=== PATIENT | male | born 1980 | race Two or more races ===

== ENCOUNTER 2023-02-05 10:01 | Outpatient (REF) | payer OTHER, SELFPAY | END 2023-02-05 10:02 | disposition home or self-care (01) | LOC: HO.BBR 10:01 | PROVIDERS: Visit Provider Internal Medicine Hematology | DX: D45 Polycythemia vera (principal) | CPT/HCPCS: 85014; 85018; 99195 ==

== ENCOUNTER 2023-02-12 09:14 | Outpatient (REF) | payer OTHER, SELFPAY | END 2023-02-12 09:15 | disposition home or self-care (01) | LOC: HO.BBR 09:14 | PROVIDERS: Visit Provider Internal Medicine Hematology | DX: D45 Polycythemia vera (principal) | CPT/HCPCS: 85014; 85018; 99195 ==

== ENCOUNTER 2023-02-16 10:59 | Outpatient (REF) | payer OTHER, SELFPAY | END 2023-02-16 11:00 | disposition home or self-care (01) | LOC: HO.BBR 10:59 | PROVIDERS: Visit Provider Internal Medicine Hematology | DX: D75.1 Secondary polycythemia (principal) | CPT/HCPCS: 85018; 99195 ==

== ENCOUNTER 2023-02-19 09:52 | Outpatient (REF) | payer OTHER, SELFPAY | END 2023-02-19 09:53 | disposition home or self-care (01) | LOC: HO.BBR 09:52 | PROVIDERS: Visit Provider Internal Medicine Hematology | DX: D75.1 Secondary polycythemia (principal) | CPT/HCPCS: 85018; 99195 ==

== ENCOUNTER 2023-02-22 09:48 | Outpatient (REF) | payer OTHER, SELFPAY | END 2023-02-22 09:49 | disposition home or self-care (01) | LOC: HO.BBR 09:48 | PROVIDERS: Visit Provider Internal Medicine Hematology | DX: D75.1 Secondary polycythemia (principal) | CPT/HCPCS: 85014; 85018; 99195 ==

== ENCOUNTER 2023-02-26 09:47 | Outpatient (REF) | payer OTHER, SELFPAY | END 2023-02-26 09:48 | disposition home or self-care (01) | LOC: HO.BBR 09:47 | PROVIDERS: Visit Provider Internal Medicine Hematology | DX: D75.1 Secondary polycythemia (principal) | CPT/HCPCS: 85014; 85018; 99195 ==

== ENCOUNTER 2023-03-02 10:01 | Outpatient (REF) | payer OTHER, SELFPAY | END 2023-03-02 10:02 | disposition home or self-care (01) | LOC: HO.BBR 10:01 | PROVIDERS: Visit Provider Internal Medicine Hematology | DX: D75.1 Secondary polycythemia (principal) | CPT/HCPCS: 85018 ==

== ENCOUNTER 2023-03-09 09:55 | Outpatient (REF) | payer OTHER, SELFPAY | END 2023-03-09 09:56 | disposition home or self-care (01) | LOC: HO.BBR 09:55 | PROVIDERS: Visit Provider Internal Medicine Hematology | DX: D75.1 Secondary polycythemia (principal) | CPT/HCPCS: 85014; 85018; 99195 ==

== ENCOUNTER 2023-03-12 10:07 | Outpatient (REF) | payer OTHER, SELFPAY | END 2023-03-12 10:08 | disposition home or self-care (01) | LOC: HO.BBR 10:07 | PROVIDERS: Visit Provider Internal Medicine Hematology | DX: D75.1 Secondary polycythemia (principal) | CPT/HCPCS: 85014; 85018; 99195 ==

== ENCOUNTER 2023-09-14 14:04 | Outpatient (REF) | payer OTHER, SELFPAY | END 2023-09-14 14:05 | disposition home or self-care (01) | LOC: HO.BBR 14:04 | PROVIDERS: Visit Provider Internal Medicine Hematology | DX: D75.1 Secondary polycythemia (principal) | CPT/HCPCS: 85014; 85018; 99195 ==

== ENCOUNTER 2023-12-15 10:01 | Outpatient (REF) | payer OTHER, SELFPAY | END 2023-12-15 10:02 | disposition home or self-care (01) | LOC: HO.BBR 10:01 | PROVIDERS: Visit Provider Internal Medicine Hematology | DX: D75.1 Secondary polycythemia (principal) | CPT/HCPCS: 85014; 85018; 99195 ==